=== PATIENT | female | born 1995 | race Two or more races ===

== ENCOUNTER 2019-08-28 10:34 | Outpatient (CLI) | payer OTHER ==
[~2019-08-28] VITALS: Ht 154.9 cm; Wt 65.8 kg
[2019-08-28] MEDS ORDERED: NEO-POLYMYXIN-H10 M2 OTIC (11:49)
== END 2019-08-28 13:06 | disposition home or self-care (01) ==
LOC: OFIC 805 10:34
PROVIDERS: ATTEND Otolaryngology
DX: H90.41 Sensorineural hearing loss, unilateral, right ear, with unrestricted hearing on the contralateral side (principal); H61.23 Impacted cerumen, bilateral

== ENCOUNTER 2019-09-11 09:29 | Outpatient (CLI) | payer OTHER ==
[~2019-09-11 09:29] MED LIST: NEO-POLYMYXIN-H10 M2 OTIC
== END 2019-09-12 08:45 | disposition home or self-care (01) ==
LOC: OFIC 805 09:29
PROVIDERS: ATTEND Otolaryngology
DX: H90.3 Sensorineural hearing loss, bilateral (principal); H61.23 Impacted cerumen, bilateral